=== PATIENT | male | born 1975 | race Caucasian/White ===

== ENCOUNTER 2016-06-24 14:18 | Inpatient (IN) | payer OTHER ==
[~2016-06-24] VITALS: Ht 175.3 cm; Wt 81.3 kg
--- OUTSIDE RECORDS SUMMARY | 2016-06-24 14:21 | XMS REPORT ---
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 Active Assessment Melena K92.1 Active Assessment Alcohol abuse with intoxication, unspecified F10.129 Active Assessment Hematemesis K92.0 Active Assessment Encounter for screening for diabetes mellitus Z13.1 Active Assessment Other specified problems related to psychosocial circumstances Z65.8 Active Medications No Known Medications Procedures Procedure Coding System Code Date OFFICE VISIT, EST-LOW COMPLEXITY (15 MIN.) CPT-4 00328 May 21, 2015 PROTIME INR, IN HOUSE CPT-4 41891 May 21, 2015 Vital Signs Date/Time: May 21, 2015 Temperature 98.4 F Height 68 in Weight 183.8 lbs Blood Pressure Diastolic 68 mm Hg Blood Pressure Systolic 104 mm Hg Cardiac Monitoring Heart Rate 91 /min BMI 27.94 Index Respiratory Rate 16 /min Results Name Result Date Reference Range Unit Abnormality Flag In House Protime INR ----results 1.1 [id number] KDHE Urine Chlamydia Trachomatis and Gonorrhoea Summary Purpose [employer] Submission
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
[2016-06-24] MEDS ORDERED: FOLIC ACID IV ONE ×4 (14:30)
[2016-06-24] MEDS ORDERED: MULTI VIT INF IV ONE ×4 (14:30)
[2016-06-24] MEDS ORDERED: NORMAL SALINE IV ONE ×4 (14:30)
[2016-06-24] MEDS ORDERED: THIAMINE IV ONE ×4 (14:30)
--- NOTE | 2016-06-24 14:31 | NUR ---
PROVIDER DR. SPARKS AT BEDSIDE FOR EXAM.
[2016-06-24] MEDS ORDERED: ONDANSETRON 4mg/2ml INJECTION IV ONE (14:45)
[2016-06-24 14:50] LABS: BASOPHILS # (AUTO) 0.1 T/MM3 (0-0.2); BASOPHILS % (AUTO) 0.4 % (0-2); EOSINOPHILS % (AUTO) 0.1 % (0-4); HCT - HEMATOCRIT 44.3 % (41-53); HGB - HEMOGLOBIN 15.1 GM/DL (13.5-17.5); IMMATURE GRANULOCYTE # (AUTO) 0.04 T/MM3 (0.00-0.03); IMMATURE GRANULOCYTE % (AUTO) 0.3 % (0.0-0.5); LYMPHOCYTES # (AUTO) 2.5 T/MM3 (1-4.8); LYMPHOCYTES % (AUTO) 17.1 % (23-45); MEAN CORPUSCULAR HGB 31.4 UUG (26-34); MEAN CORPUSCULAR HGB CONC(MCHC 34.1 GM/DL (31-37); MEAN CORPUSCULAR VOLUME 92.1 UM3 (80-100); MEAN PLATELET VOLUME 10.3 UM3 (9.4-12.4); MONOCYTES # (AUTO) 0.7 T/MM3 (0-0.8); MONOCYTES % (AUTO) 4.8 % (0-9.0); NEUTROPHILS #(AUTO)-ABSOLUTE 11.1 T/MM3 (1.8-7.7); NEUTROPHILS % (AUTO) 77.3 % (33-66); RED BLOOD COUNT 4.81 M/MM3 (4.50-5.90); WBC - WHITE BLOOD COUNT 14.4 T/MM3 (4.5-11.0)
[2016-06-24 15:00] LABS: ACETAMINOPHEN < 10 UG/ML (10-30); ALBUMIN 4.4 G/DL (3.5-5.0); ALBUMIN/GLOBULIN RATIO 1.8 RATIO (1.1-2.2); ALKALINE PHOSPHATASE 61 U/L (38-126); ALT (SGPT) 29 U/L (21-72); ANION GAP 21 MEQ/L (5-15); AST (SGOT) 27 U/L (17-59); BUN/CREATININE RATIO 18 RATIO (6-26); CALCIUM 9.2 MG/DL (8.4-10.2); CHLORIDE 105 MEQ/L (98-107); CO2 - CARBON DIOXIDE 22 MEQ/L (22-30); CREATININE 0.9 MG/DL (0.8-1.5); GLOMERULAR FILTRATION RATE 93; GLUCOSE 129 MG/DL (75-110); POTASSIUM 3.3 MEQ/L (3.6-5); SALICYLATE < 1.0 MG/DL (2-20); SODIUM 148 MEQ/L (134-144); TOTAL PROTEIN 6.8 G/DL (6.3-8.2)
[2016-06-24] MEDS ORDERED: BUSP5TAB3 PO (15:05)
[2016-06-24 15:07] LABS: ETHANOL 335 MG/DL (<10)
[2016-06-24] MEDS ORDERED: NALOXONE 0.4mg/ml INJECTION IV ONE (15:15)
[2016-06-24] MEDS ORDERED: NORMAL SALINE 1,000 ML IV ONE (15:15)
[2016-06-24 15:18] LABS: INR 1.08 (0.76-1.04); PROTHROMBIN TIME 11.8 SEC (9.31-12.49)
--- NOTE | 2016-06-24 15:21 | NUR ---
RADIOLOGY PT TO RADIOLOGY BY [facility] AT THIS TIME ACCOMP BY MORRIS CARSON.
[2016-06-24] MEDS ORDERED: IOHEXOL 350 MG/ML 100ml INJECTION ONE (15:31)
[2016-06-24] MEDS ORDERED: NORMAL SALINE 100 ML ONE ×4 (15:31)
[2016-06-24] MEDS ORDERED: SALINE FLUSH 10ml SYRINGE ONE (15:31)
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
--- NOTE | 2016-06-24 15:46 | NUR ---
RETURN PT RETURNED FROM RADIOLOGY BY CART AT THIS TIME. PT NOTED TO HAVE INCREASED AGITATION UPON RETURN. ATTEMPTS TO GET OUT OF BED. [employer] OFFICER HOLDING PT TO BED. DR. SPARKS NOTIFIED. ORDERS REC'D TO PLACE PT IN [facility] RESTRAINTS AT THIS TIME.
--- NOTE | 2016-06-24 15:46 | DI ---
Indication: ITS.REASON: Trauma PROCEDURE: CHEST AP supine Encounter: Initial COMPARISON: None FINDINGS: The lungs are clear without evidence of focal abnormal airspace opacity. There is no pleural effusion or pneumothorax. The heart size, mediastinal contours and pulmonary vascularity are within normal limits. There is no significant skeletal abnormality. IMPRESSION: No acute cardiopulmonary disease. .
[2016-06-24 15:49] LABS: THYROID STIM HORMONE-TSH 0.74 MIU/L (0.47-4.68)
--- NOTE | 2016-06-24 15:54 | DI ---
Indication: ITS.REASON: trauma PROCEDURE: CT HEAD W/O CONTRAST: Encounter: Initial Comparison: None Technique: Axial CT images through the head were performed without contrast. FINDINGS: The study is slightly compromised by motion artifact. The ventricles are of normal size, shape, and configuration for the patient's age. There is no evidence of acute intracranial hemorrhage, midline displacement, or mass effect. The CT attenuation of the brain parenchyma is normal within the cerebellum, brain stem, and cerebral hemispheres. The tympanic cavities and mastoid air cells are free of appreciable disease. There are no definite fractures of the skull base, calvarium, or visualized portion of the midface. IMPRESSION: No CT evidence of acute traumatic intracranial injury. .
--- NOTE | 2016-06-24 15:58 | DI ---
Indication: ITS.REASON: trauma PROCEDURE: CT CERVICAL SPINE W/O CONTRAST: Encounter: Initial Comparison: None Technique: Axial CT images through the cervical spine were performed without contrast. Coronal and sagittal reformatted images were also obtained. FINDINGS: There is straightening of the cervical spine which can be seen with spasm or positioning. There is no evidence of acute fracture or subluxation of the cervical spine. Prominent disc space narrowing and hypertrophic spurring is seen at C5-6 and more mild at C6-7. The facet joints are well aligned with preservation of the intervertebral disk and facet joints. The atlantoaxial articulation, dens, and upper cervical spine demonstrate no subluxation. The C1 ring shows nonunion posteriorly which is a normal variant. There is no evidence of significant spinal stenosis, foraminal compromise, or significant disk herniation. The paraspinal soft tissues and spinal canal appear unremarkable. Mild mucosal thickening is seen anteriorly in both maxillary sinuses. IMPRESSION: 1. No acute traumatic abnormality of the cervical spine. 2. Disc space and hypertrophic spurring from C5 to C7. 3. Straightening of the spine which can be seen with spasm or positioning. 4. 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 .
[2016-06-24] MEDS ORDERED: OLANZAPINE 10 MG/VIAL INJECTION IM ONE (16:00)
[2016-06-24] MEDS: NORMAL SALINE 1,000 ML IV ONE ×2 (16:00→16:10)
--- NOTE | 2016-06-24 16:00 | DI ---
Indication: ITS.REASON: trauma PROCEDURE: CT THORACIC SPINE W/O CONTRAST: Encounter: Initial Comparison: None available Procedure: Axial views were obtained along with coronal and sagittal reconstructed views throughout thoracic spine. CT dose reduction techniques were utilized. Findings: The study is markedly compromised by motion artifact. There appears be no significant compression fracture. There is mild disc space narrowing and mild marginal hypertrophic spurring anteriorly. No significant subluxation is seen throughout the mid and lower thoracic spine although upper thoracic spine is nondiagnostic due to motion artifact. Posterior visualized ribs are unremarkable. Impression 1. Suboptimal study due to marked motion artifact. 2. No obvious compression fractures or significant subluxation although the upper thoracic spine is nondiagnostic. .
--- NOTE | 2016-06-24 16:03 | DI ---
Indication: ITS.REASON: trauma PROCEDURE: CT LUMBAR SPINE W/O CONTRAST: Encounter: Initial Comparison: None available Procedure: Axial views are obtained along with coronal and sagittal reconstruction views. The study is moderately compromised by motion artifact. Findings: There is no significant compression deformity or disc space narrowing. There is grade 1 spondylolisthesis of L5 on S1 due to pars defects. Posterior elements otherwise appear to be intact although evaluation is compromised at the L5-S1 level due to motion artifact. Coronal projection shows no significant scoliotic deformity. Impression: 1. No evidence of compression deformity. 2. Grade 1 spondylolisthesis of L5 on S1 with pars defects. 3. Prominent motion artifact compromising evaluation of the lumbar sacral junction. .
--- NOTE | 2016-06-24 16:30 | NUR ---
RESTRAINT PT CALM AND COOPERATIVE. INFORMED WILL TAKE ONE LIMB OUT OF RESTRAINT AT A TIME IF BEHAVIOR PERSISTS. PT AGREES TO PLAN. L LEG REMOVED FROM RESTRAINT AT THIS TIME.
[2016-06-24 16:33] LABS: BLOOD, URINE NEGATIVE (NEGATIVE); COLOR,URINE YELLOW (YELLOW); LEUKOCYTE ESTERASE ,URINE 1+ (NEGATIVE); NITRITE,URINE POSITIVE (NEGATIVE); UROBILINOGEN,URINE 0.2 EU/DL (NORMAL)
[2016-06-24 16:41] LABS: BACTERIA,URINE 3+ (NEGATIVE); RBC,URINE NONE SEEN /HPF (0-3); SQUAMOUS EPITHELIAL CELL,UR 0-5
[2016-06-24 16:46] LABS: AMPHETAMINE SCREEN,URINE NEGATIVE; BARBITURATE SCREEN,URINE NEGATIVE; BENZODIAZEPINES SCREEN,URINE NEGATIVE; CANNABINOID SCREEN,URINE NEGATIVE; COCAINE SCREEN,URINE NEGATIVE; METHADONE SCREEN, URINE NEGATIVE; METHAMPHETAMINE SCREEN, URINE NEGATIVE; OPIATE SCREEN,URINE NEGATIVE; PHENCYCLIDINE SCREEN,URINE NEGATIVE; TRICYCLIC ANTIDEPRESSANT,URINE NEGATIVE
--- NOTE | 2016-06-24 16:50 | NUR ---
PT NOTE To CT accompanied by heidi and myself at this time.
[2016-06-24] MEDS ORDERED: CEFTRIAXONE I.V. (ER USE ONLY) 1 G in NORMAL SALINE 100 ML IV ONE (17:00)
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
--- NOTE | 2016-06-24 17:40 | NUR ---
REPORT CALLED TO [facility] HALL ON [facility]. DENIES QUESTIONS. INFORMED WAITING ON REMAINING CT RESULTS, THEN WILL TAKE PT DOWN.
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
--- NOTE | 2016-06-24 18:30 | NUR ---
PROVIDER DR. RODRIGES AT BEDSIDE.
[2016-06-24 18:43] VITALS: Ht 175.3 cm; Wt 81.3 kg
--- NOTE | 2016-06-24 18:43 | NUR ---
ADMIT PT TAKEN TO MEDICAL UNIT, RM 144 BY W/C PER THIS RN ACCOMP BY CONCHIS RAMOS. PT ALERT AND COOPERATIVE.
--- NOTE | 2016-06-24 18:45 | NUR ---
Admit Patient admitted to medical room 144. Patient escorted by copier operator. Patient is cooperative. Unsteady on feet. Patient requests vargas to be removed, will obtain order. Patient breathing comfortable on RA.
[2016-06-24 18:46] VITALS: BP 125/68; PULSE 96; RESP 20; TEMP 98.3; O2SAT 97
[2016-06-24] MEDS: NORMAL SALINE 1,000 ML IV SCH ×2 (18:55→19:14)
[2016-06-24] MEDS ORDERED: ONDANSETRON 4mg/2ml INJECTION IV PRN (19:30)
[2016-06-24] MEDS ORDERED: LORAZEPAM 2 MG/ML INJECTION IV PRN (19:30)
[2016-06-24] MEDS ORDERED: METOCLOPRAMIDE 10mg/2ml INJECTION IV PRN (19:30)
[2016-06-24] MEDS ORDERED: ACETAMINOPHEN 325 MG TABLET PO PRN (19:30)
[2016-06-24 20:00] VITALS: BP 116/68; PULSE 101; RESP 18; TEMP 98.3; O2SAT 96
[2016-06-24 21:00] VITALS: PULSE 99; RESP 18
[2016-06-24] MEDS: FAMOTIDINE 20 MG TABLET PO SCH (21:37)
[2016-06-24] MEDS: D5 IV SCH (21:38)
[2016-06-24] MEDS: POTASSIUM CHLORIDE IV SCH (21:38)
[2016-06-24] MEDS: 1/2 NS IV SCH (21:38)
[2016-06-24 23:36] VITALS: BP 119/63; PULSE 95; RESP 18; TEMP 99.2; O2SAT 94
[2016-06-24] MEDS ORDERED: AZITHROMYCIN 500 MG TABLET PO ONE (23:45)
[2016-06-25 04:51] LABS: BASOPHILS % (AUTO) 0.2 % (0-2); EOSINOPHILS # (AUTO) 0.1 T/MM3 (0-0.5); EOSINOPHILS % (AUTO) 0.7 % (0-4); HCT - HEMATOCRIT 40.8 % (41-53); HGB - HEMOGLOBIN 13.4 GM/DL (13.5-17.5); IMMATURE GRANULOCYTE # (AUTO) 0.02 T/MM3 (0.00-0.03); IMMATURE GRANULOCYTE % (AUTO) 0.2 % (0.0-0.5); LYMPHOCYTES # (AUTO) 2.1 T/MM3 (1-4.8); MEAN CORPUSCULAR HGB 30.7 UUG (26-34); MEAN CORPUSCULAR HGB CONC(MCHC 32.8 GM/DL (31-37); MEAN CORPUSCULAR VOLUME 93.6 UM3 (80-100); MEAN PLATELET VOLUME 10.1 UM3 (9.4-12.4); MONOCYTES # (AUTO) 0.8 T/MM3 (0-0.8); MONOCYTES % (AUTO) 8.3 % (0-9.0); NEUTROPHILS #(AUTO)-ABSOLUTE 6.6 T/MM3 (1.8-7.7); NEUTROPHILS % (AUTO) 68.6 % (33-66); RED BLOOD COUNT 4.36 M/MM3 (4.50-5.90); WBC - WHITE BLOOD COUNT 9.7 T/MM3 (4.5-11.0)
[2016-06-25 04:59] LABS: ALBUMIN 3.5 G/DL (3.5-5.0); ANION GAP 11 MEQ/L (5-15); BUN/CREATININE RATIO 14 RATIO (6-26); CALCIUM 8.6 MG/DL (8.4-10.2); CHLORIDE 110 MEQ/L (98-107); CO2 - CARBON DIOXIDE 24 MEQ/L (22-30); CREATININE 0.8 MG/DL (0.8-1.5); GLOMERULAR FILTRATION RATE 107; GLUCOSE 94 MG/DL (75-110); MAGNESIUM 2.2 MG/DL (1.6-2.3); PHOSPHORUS 3.5 MG/DL (2.5-4.5); POTASSIUM 4.1 MEQ/L (3.6-5); SODIUM 145 MEQ/L (134-144)
[2016-06-25 05:10] VITALS: BP 123/69; PULSE 71; RESP 18; TEMP 98.4; O2SAT 97
[2016-06-25 05:41] LABS: C-REACTIVE PROTEIN < 5.0 MG/L (0-9)
[2016-06-25] MEDS: POTASSIUM CHLORIDE IV SCH (06:25)
[2016-06-25] MEDS: 1/2 NS IV SCH (06:25)
[2016-06-25] MEDS: D5 IV SCH (06:25)
[2016-06-25] MEDS: FAMOTIDINE 20 MG TABLET PO SCH ×2 (07:57→21:26)
[2016-06-25 09:18] VITALS: BP 137/97; PULSE 72; RESP 16; TEMP 98.6; O2SAT 99
[2016-06-25 09:19] VITALS: BP 137/97; PULSE 72; RESP 16; TEMP 98.6; O2SAT 99
[2016-06-25] MEDS ORDERED: AZITHROMYCIN 500 MG TABLET PO ONE (09:30)
--- NOTE | 2016-06-25 09:39 | DI ---
Indication: ITS.REASON: Trauma PROCEDURE: PELVIS 1-2 VIEW DEDICATED PELVIS: Encounter: Initial Comparison: None Findings: There is no acute fracture, dislocation or malalignment identified. There is no diastases of SI joints or symphysis pubis. Several phleboliths are seen in lower pelvis. Moderate stool is seen in the rectal vault. Impression: No acute osseous abnormality. .
[2016-06-25 10:00] VITALS: PULSE 72; RESP 14; O2SAT 99
--- NOTE | 2016-06-25 11:39 | NUR ---
ARIANNA KELLER IN TO VISIT PATIENT, HE IS A&O. [facility] OFFICER IS PRESENT. PATIENT WILL BE DISCHARGED IN THE CUSTODY OF [facility]. CM CONTACT INFORMATION GIVEN. Addendum: 06/25/16 at 1140 by JONNY MALIK RN Amended: Links added.
--- NOTE | 2016-06-25 11:59 | PNPDOC ---
Subjective Date DATE: 06/25/16 TIME: 11:49 Subjective Mingo describes mild nausea after receiving dose of azithromycin orally yesterday evening for chlamydia. He has a mild headache this morning but otherwise feels fine. Nausea subsided and he was able to eat breakfast without difficulty. He denied dyspnea, cough, chest pain, palpitations, or generalized pain. He continues to deny dysuria or urgency. Objective Vital Signs Vital signs Vital Signs Date Time Temp Pulse Resp B/P Pulse Ox O2 Delivery O2 Flow Rate FiO2 06/25/16 10:00 72 14 99 Room Air 06/25/16 09:19 98.6 137/97 I/O 5917/2975-cumulative balance EXAM General-NAD, alert, cooperative HEENT-conjunctiva clear, sclera anicteric, conjugate gaze, neck supple and without adenopathy Lungs-respirations nonlabored, good airflow, press sounds clear Cardiac-regular rhythm, S1-S2 Abd-soft, nontender, bowel sounds present Ext-without edema Neuro-moving all extremities well Psych-calm, push of speech no longer present Height (Feet): 5 Height (Inches): 9.00 Weight (Kilograms): 86.700 Laboratory Laboratory Laboratory Tests 06/24/16 14:39 06/25/16 04:18 Laboratory Tests 06/24/16 14:39 06/25/16 04:18 Magnesium 2.2, phosphorus 3.5 Second lactic acid 2.1 Microbiology Microbiology Microbiology Date/Time Source Procedure Growth Status 06/24/16 15:07 Peripheral/Iv Start Blood Culture - Preliminary CULTURE INITIATED - RESULTS PENDING Resulted 06/24/16 15:07 Peripheral/Iv Start Blood Culture - Preliminary CULTURE INITIATED - RESULTS PENDING Resulted 06/24/16 16:43 Urine, Clean Catch-Midstream Urine Culture - > 100,000 CFU Gram Negative Giacomo Resulted Urine Chlamydia trachomatis DNA PCR positive, Neisseria gonorrhea DNA PCR negative Radiology X-ray of pelvis obtained in the ER yesterday just prior to transfer reviewed-no pelvic pathology Sepsis Diagnostic Criteria Sepsis Confirmed/Suspected Infection: Yes SIRS Criteria: WBC >=12,000 or <=4,000 Severe Sepsis SBP <90 or MAP <65 Septic Shock Septic Shock Criteria: Lactate >4 Assessment & Plan Assessment Hypotension Lactic acidosis UTI Possible septic shock Chlamydia urethritis Intoxication/alcohol abuse Hypokalemia Hypernatremia Leukocytosis Blood pressure stabilized overnight with IV fluids and/or antibiotics. Taking by mouth well, fluids will be discontinued today. Urine culture positive for gram-negative organism-continue Rocephin pending identification/sensitivities. Chlamydia treated with 1 g of azithromycin by mouth, patient advised partner will require treatment. Hypokalemia has corrected, hypernatremia improved-reassess in a.m. Sober this morning. Continue inpatient care pending results of blood cultures and identification of organism and urine. Plan/Intensity of Service Laboratory data reviewed, x-ray of pelvis reviewed. Discussed with nursing/case management. DVT Prophylaxis: RONNIE Mack Code Status Full Code Hospital Course Summary Disclaimer The hospital course summary below is not to be considered part of the above Progress Note. Hospital Course Summary 06/24/16 Mr. Arnold presents with overt alcohol intoxication in conjunction with leukocytosis, pyuria, hypotension, and lactic acidosis. He is not febrile nor was he tachycardic or tachypnea get any point during ER assessment. He has no other clinical signs that suggest sepsis/SIRS although presumptive diagnosis on admission his septic shock based on pyuria, leukocytosis, lactic acidosis, and hypotension. Ultimately profound dehydration due to alcohol ingestion causing hypotension and lactic acidosis may account for majority of presenting symptoms with incidental UTI. The patient denies urinary symptoms but suggests he may have HPV due to partner's prior symptoms. Will screen for chlamydia/GC. At present continue IV fluids, Rocephin, and supportive care. Last alcohol ingestion prior to today was 3 months ago before patient was arrested. Alcohol withdrawal unlikely however lorazepam will be available. Potassium low, replace IV. Check magnesium/phosphorus in a.m. Antiemetics available if needed, initiate Pepcid for gastric protection given large-volume alcohol intake earlier today. SCDs for DVT prophylaxis. 06/25/16 Blood pressure stabilized overnight with IV fluids and/or antibiotics. Taking by mouth well, fluids will be discontinued today. Urine culture positive for gram-negative organism-continue Rocephin pending identification/sensitivities. Chlamydia treated with 1 g of azithromycin by mouth, patient advised partner will require treatment. Hypokalemia has corrected, hypernatremia improved-reassess in a.m. Sober this morning. RADHA RODRIGES MD June 25, 2016 11:53
--- NOTE | 2016-06-25 13:53 | DI ---
EXAM: CT chest abdomen pelvis with IV contrast using a CT aortogram protocol with 3-D shaded surface display reconstructions, MPR reconstructions, and MIP reconstructions. COMPARISON: None available. HISTORY: ITS.REASON: trauma [place] [facility] [place]CHNIQUE: With and without administration of 100 cc Omnipaque 350 helically acquired scans were obtained from the lung apices through the ischial tuberosities. The study is reviewed in soft tissue, bone and lung windows. The study is reconstructed in thinner axial sections and in coronal reformations, 3-D shaded surface display reconstructions, MPR reconstructions, and MIP reconstructions. The current CT scan was performed using radiation dose-reduction techniques. FINDINGS: SOFT TISSUES: No axillary or supraclavicular, mediastinal, or hilar lymphadenopathy is identified. The vascular structures appear unremarkable. No significant pericardial effusion is identified. The main pulmonary artery measures 3.4 cm in diameter which could suggest portal hypertension, but is borderline. The thoracic aorta is normal in caliber without evidence for aneurysm. No evidence for aortic stenosis or aortic dissection is identified. CHEST WALL: Unremarkable. BONES: Endplate sclerosis and spurring is noted of the thoracic spine. No evidence for osseous metastasis. LUNGS: Unremarkable. The lungs are clear. Mild dependent atelectatic changes are noted. CHEST IMPRESSION: Unremarkable exam. No evidence for aortic dissection or aneurysm. The main pulmonary artery measures 3.4 cm which is borderline for pulmonary hypertension. Clinical correlation is suggested. ABDOMEN AND PELVIS FINDINGS: LIVER: Unremarkable. GALLBLADDER: Unremarkable. SPLEEN: Unremarkable. PANCREAS: Unremarkable. ADRENAL GLANDS: Unremarkable. AORTA/IVC/VASCULATURE: Unremarkable. No evidence for aortic aneurysm or dissection is identified. The celiac axis, SMA, renal arteries, MELBA are widely patent. No vascular abnormalities are identified. The common iliac arteries, external iliac arteries, and internal iliac arteries appear to be widely patent. LYMPH NODES: No lymphadenopathy is identified. Small lymph nodes are noted, but are not pathologically enlarged. GENITOURINARY: Unremarkable. No renal calculi or obstructive uropathy. The bladder and ureters appear unremarkable. BOWEL: Unremarkable. The stomach, duodenum, small bowel, and colon appear unremarkable. There is a moderate amount of stool seen in the rectosigmoid colon. The descending colon and splenic flexure and transverse colon and ascending colon are decompressed. The terminal ileum is unremarkable. What is thought to represent the appendix appears unremarkable. ABDOMINAL/PELVIC WALL: Unremarkable. BONES: There is spina bifida occulta at L5 and S1. There are bilateral pars defects at L5. ABDOMEN AND PELVIS IMPRESSION: 1. No evidence for aortic aneurysm or dissection. No vascular abnormalities are identified. 2. Bilateral pars defects at L5. Spina bifida occulta at L5 and S1. NOTE: This study was reviewed via teleradiology by [employer] and a preliminary impression consistent with above findings was conveyed to the ordering clinician immediately after the exam. .
--- NOTE | 2016-06-25 14:26 | NUR ---
nut culler Chart reviewed by [facility] nutrition and dietetics instructor.
[2016-06-25 15:34] VITALS: BP 143/75; PULSE 67; RESP 18; TEMP 98.1; O2SAT 96
[2016-06-25] MEDS ORDERED: CEFTRIAXONE 1 G in NORMAL SALINE 100 ML IV SCH (17:00)
--- NOTE | 2016-06-25 19:49 | NUR ---
status Pt A/O x3, V/S stable on RA. Pt had headache, PRN tylenol given 1x, pt stating it helped. Pt eating and drinking well, no N/V. Ambulating well with standby assist, good urine output and 1 stool today. Knows to call for needs. Renny sewell remains in room, cuffs to bilat ankles.
[2016-06-25 20:08] VITALS: BP 120/72; PULSE 70; RESP 16; TEMP 97.9; O2SAT 97
[2016-06-26 00:50] VITALS: BP 126/70; PULSE 64; RESP 16; TEMP 96.4; O2SAT 99
[2016-06-26 05:04] LABS: ANION GAP 10 MEQ/L (5-15); BUN/CREATININE RATIO 20 RATIO (6-26); CHLORIDE 106 MEQ/L (98-107); CO2 - CARBON DIOXIDE 29 MEQ/L (22-30); CREATININE 0.8 MG/DL (0.8-1.5); GLOMERULAR FILTRATION RATE 107; GLUCOSE 90 MG/DL (75-110); SODIUM 145 MEQ/L (134-144)
--- NOTE | 2016-06-26 06:05 | NUR ---
Alert and orientated. [facility]'s [place] at bedside at all times. Patient tolerates food and fluid well. Reports voiding without difficulty or discomfort. Remains afebrile. Pleasant and cooperative. No PRNs given during the night.
[2016-06-26 07:39] VITALS: BP 132/83; PULSE 56; RESP 16; TEMP 95.9; O2SAT 98
[2016-06-26] MEDS: FAMOTIDINE 20 MG TABLET PO SCH (09:07)
--- NOTE | 2016-06-26 09:43 | NUR ---
ARIANNA KELLER VISITED PT AND BED SIDE [facility]. CM EXPLAINED ROLE AND PROVIDED CONTACT INFORMATION. PT DENIES NEEDS. PT WILL RETURN [facility]. PT WILL BE TRANSPORTED BY [facility] AT TIME OF D/C FROM [facility] [place]. PT IS AWARE TO CONTACT CM IF NEED ARISE.
[2016-06-26] MEDS ORDERED: CEPH500T PO (11:57)
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
--- NOTE | 2016-06-26 13:24 | NUR ---
DC Pt A/O x3, V/S stable on RA. Pt eating and drinking well. Urine output good. IV site taken out, cath tip intact. DC instructions given to both pt and deputy. [facility] given to [facility] Pt taken by deputy to waiting car. Pt denies pain and no PRN meds were given.
== END 2016-06-26 13:20 | DRG 690 ==
LOC: ED 14:18 → EDHOLD 17:12 → MED 18:41
PROVIDERS: ADMIT Internal Medicine; ATTEND Internal Medicine
DX: N39.0 Urinary tract infection, site not specified (principal); E87.0 Hyperosmolality and hypernatremia; E87.2 Acidosis; I95.9 Hypotension, unspecified; A56.01 Chlamydial cystitis and urethritis; E87.6 Hypokalemia; D72.829 Elevated white blood cell count, unspecified; F10.129 Alcohol abuse with intoxication, unspecified; B96.20 Unspecified Escherichia coli [E. coli] as the cause of diseases classified elsewhere; F32.9 Major depressive disorder, single episode, unspecified; F41.9 Anxiety disorder, unspecified; Z87.828 Personal history of other (healed) physical injury and trauma
CPT/HCPCS: 36415; 51702; 80048; 80053; 80069; 80306; 80307; 81001; 83605; 83735; 84145; 84443; 85025; 85610; 86140; 87040; 87077; 87086; 87186; 87491; 87591; 96361; 96374